=== PATIENT | female | born 1975 | race Two or more races ===

== ENCOUNTER 2024-09-17 14:35 | Inpatient (IN) | payer OTHER ==
[~2024-09-17] VITALS: Ht 170.2 cm; Wt 117.9 kg
[2024-09-17] MEDS ORDERED: LABETALOL HCL 100 MG/20 ML ML IV PUSH STA ×2 (16:01→18:03)
[2024-09-17] MEDS ORDERED: LABETALOL HCL 100 MG/20 ML ML ONE ×2 (16:11→18:38)
[2024-09-17 16:30] LABS: HEMATOCRIT 41.4 % (36.0-45.00); MEAN CELL VOLUME 80.8 fL (80.00-100.00); MEAN CORPUSCULAR HEMOGLOBIN 27.3 pg (27.00-32.0); MEAN CORPUSCULAR HGB CONC 33.8 g/dl (32.0-36.0); PLATELET COUNT 177 K/uL (150-450); RED BLOOD COUNT 5.12 M/uL (4.00-6.00); RED CELL DISTRIBUTION WIDTH 13.7 % (11.5-14.5)
[2024-09-17 16:48] LABS: INR 0.99; PARTIAL THROMBOPLASTIN TIME 23.9 SECONDS (22.0-34.0); PROTHROMBIN TIME 10.8 SECONDS (9.0-11.5)
[2024-09-17 16:54] LABS: ALBUMIN 4.2 gm/dL (3.4-5.0); BILIRUBIN TOTAL 0.64 mg/dL (0.3-1.2); CALCIUM 9.2 mg/dL (8.5-10.1); CREATININE SERUM 1.01 mg/dL (0.55-1.02); GFR 58.5; GLOBULINA 3.3 G/DL (2.4-3.5); TOTAL PROTEIN 7.5 gm/dL (6.4-8.2)
[2024-09-17 17:12] LABS: POTASSIUM 2.91 mEq/L (3.5-5.1)
[2024-09-17] MEDS ORDERED: POTASSIUM CHLORIDE 10 MEQ CAPSULE PO STA (18:00)
[2024-09-17 18:42] LABS: PH,URINE 7.5 (5.0-8.0); URINE APPEARANCE Clear; URINE BILIRRUBIN Negative (NEGATIVE); URINE BLOOD Negative; URINE COLOR Yellow; URINE GLUCOSE Negative (NEGATIVE); URINE KETONE 15 (NEGATIVE); URINE LEUKOCYTE Negative; URINE NITRATE Negative; URINE PROTEIN Trace (NEGATIVE); URINE UROBILINOGEN 0.2 E.U./dl
[2024-09-17 18:46] LABS: URINE BACTERIA 122.3 uL (0.0-1933); URINE WBC 14.7 uL (0.0-23.2)
[2024-09-17 18:50] LABS: URINE CAST 0.14 uL (0.0-1.40); URINE RBC 0.8 uL (0.0-20.8)
[2024-09-17] MEDS ORDERED: ATORVASTATIN CALCIUM 40 MG TABLET PO SCH (20:55)
[2024-09-17] MEDS ORDERED: 0.9 % SODIUM CHLORIDE 1,000 ML IV SCH (21:00)
[2024-09-17] MEDS ORDERED: ASPIRIN 325 MG TABLET.EC PO ONE (21:00)
[2024-09-17] MEDS ORDERED: ACETAMINOPHEN 500 MG GEL..CAP PO PRN (21:00)
[2024-09-17] MEDS ORDERED: CLEVIDIPINE BUTYRATE 100 ML IV SCH (21:00)
[2024-09-17] MEDS ORDERED: MORPHINE SULFATE 2 MG/ML SYRINGE IV PRN (21:15)
[2024-09-17] MEDS ORDERED: POTASSIUM CHLORIDE 20MEQ/100ML H2O PB IV ONE ×2 (21:15→21:46)
[2024-09-17 22:35] LABS: D DIMER 0.73 MG/L; INR 1.03; PARTIAL THROMBOPLASTIN TIME 26.5 SECONDS (22.0-34.0); PROTHROMBIN TIME 11.2 SECONDS (9.0-11.5)
[2024-09-17 23:00] VITALS: BP 167/88; O2SAT 98
[2024-09-18] VITALS (18 sets, daily range): BP systolic 138–192; BP diastolic 71–102; O2SAT 95–100
[2024-09-18 07:45] LABS: CALCIUM 9.8 mg/dL (8.5-10.1); CREATININE SERUM 0.91 mg/dL (0.55-1.02); GFR 65.98; MAGNESIUM 2.2 mg/dL (1.8-2.4); POTASSIUM 3.97 mEq/L (3.5-5.1); TSH 1.13 uIU/mL (0.358-3.74)
[2024-09-18] MEDS ORDERED: ASPIRIN 81 MG TAB.CHEW PO SCH (09:00)
[2024-09-18] MEDS ORDERED: FAMOTIDINE/PF 20 MG in 0.9 % SODIUM CHLORIDE 8 ML IV PUSH SCH ×2 (09:00→21:00)
[2024-09-18] MEDS ORDERED: ENOXAPARIN SODIUM 40 MG/0.4 ML SYRINGE SUBCUTANEO SCH ×2 (09:00→17:00)
[2024-09-18] MEDS ORDERED: CHLORHEXIDINE GLUCONATE 120 ML BOTTLE TOP ONE (11:12)
[2024-09-19] VITALS (10 sets, daily range): BP systolic 136–167; BP diastolic 68–99; O2SAT 93–100
[2024-09-19 08:00] LABS: CREATININE SERUM 1.15 mg/dL (0.55-1.02); GFR 50.36; POTASSIUM 4.2 mEq/L (3.5-5.1)
[2024-09-19] MEDS ORDERED: LOSARTAN POTASSIUM 50 MG TABLET PO SCH (09:00)
[2024-09-19] MEDS ORDERED: AMLODIPINE BESYLATE 5 MG TABLET PO SCH (09:00)
[2024-09-19] MEDS ORDERED: HYDROCHLOROTHIAZIDE 25 MG TABLET PO SCH (11:09)
[2024-09-20 01:25] VITALS: BP 156/88; O2SAT 96
[2024-09-20 06:34] VITALS: BP 159/91
[2024-09-20 08:00] VITALS: BP 155/92; O2SAT 96
[2024-09-20] MEDS ORDERED: AMLODIPINE BESYLATE 5 MG TABLET PO SCH (09:00)
[2024-09-20 10:00] LABS: ALBUMIN 3.8 gm/dL (3.4-5.0); BILIRUBIN TOTAL 0.73 mg/dL (0.3-1.2); CALCIUM 9.3 mg/dL (8.5-10.1); CREATININE SERUM 1.02 mg/dL (0.55-1.02); GFR 57.84; POTASSIUM 4.01 mEq/L (3.5-5.1); TOTAL PROTEIN 6.8 gm/dL (6.4-8.2)
[2024-09-20 16:00] VITALS: BP 155/79; O2SAT 95
[2024-09-21 02:39] VITALS: BP 169/90; O2SAT 97
[2024-09-21 05:59] VITALS: BP 164/78; O2SAT 98
[2024-09-21 08:00] VITALS: BP 137/77; O2SAT 99
[2024-09-21 20:04] VITALS: BP 160/93; O2SAT 95
[2024-09-22 01:16] VITALS: BP 146/75; O2SAT 94
[2024-09-22 08:00] VITALS: BP 159/74; O2SAT 90
[2024-09-22] MEDS ORDERED: LOSARTAN POTASSIUM 50 MG TABLET PO SCH (09:00)
== END 2024-09-22 10:52 | disposition home or self-care (01) | DRG 305 ==
LOC: ER 14:37 → ICU-2 21:51 → ICU 21:51 → SURH 09-19 12:23
PROVIDERS: General Practice; Internal Medicine; ADMIT Student in an Organized Health Care Education/Training Program; ATTEND Student in an Organized Health Care Education/Training Program
PROC: BW28ZZZ Computerized Tomography (CT Scan) of Head (ICD-10-PCS; principal; 2024-09-17)
PROC: B246ZZZ Ultrasonography of Right and Left Heart (ICD-10-PCS; 2024-09-17)
PROC: BT4JZZZ Ultrasonography of Kidneys and Bladder (ICD-10-PCS; 2024-09-19)
PROC: B246ZZZ Ultrasonography of Right and Left Heart (ICD-10-PCS; 2024-09-19)
PROC: 4A12X4Z Monitoring of Cardiac Electrical Activity, External Approach (ICD-10-PCS; 2024-09-19)
DX: I16.1 Hypertensive emergency (principal); E66.01 Morbid (severe) obesity due to excess calories